=== PATIENT | male | born 1995 | race Two or more races ===

== ENCOUNTER 2023-04-17 14:41 | Observation (INO) | payer MEDICAID, SELFPAY ==
--- NOTE | ~2023-04-17 | CT_ITS ---
EXAMINATION: CT ANGIOGRAM OF THE CHEST WITH AND WITHOUT CONTRAST (CT PULMONARY ANGIOGRAM FOR PE) CLINICAL INFORMATION: Reason for Exam chest pain, SOB COMPARISON: None available. TECHNIQUE: Prior to contrast administration, noncontrast localization images were obtained. Subsequently, multidetector volumetric imaging was performed from the thoracic inlet to below the diaphragms following the administration of 80 mL Omnipaque 350 intravenous contrast. No contrast reaction reported Sagittal, coronal, and MIP oblique sagittal reformatted images were obtained on the CT workstation, uploaded to PACS, and reviewed. This CT examination was performed using dose optimization techniques as appropriate, variously including the following: *Automated exposure control *Adjustment of mA and/or kV according to patient size (this includes techniques or standardized protocols for targeted exams where dose is matched to indication/reason for exam; i.e. extremities or head) *Use of iterative reconstruction technique Total exam dose-length product 328 mGy-cm FINDINGS: QUALITY OF STUDY/CONTRAST BOLUS: Satisfactory. PULMONARY ARTERIES: No pulmonary emboli. THORACIC AORTA: No aneurysm. LUNG: Dense consolidation within left lower lobe with patchy opacities in the left upper lobe suggestive of multifocal,, multilobar bronchopneumonia. PLEURA: No pleural effusion or pneumothorax. MEDIASTINUM: Normal heart size. No pericardial effusion. No hilar or mediastinal lymphadenopathy. No evidence of septal bowing or right heart strain. CORONARY ARTERY CALCIFICATION: None visualized on this study. CHEST WALL/AXILLA: No axillary or internal mammary lymphadenopathy. OSSEOUS STRUCTURES: No acute or suspicious osseous abnormality. UPPER ABDOMEN: Hepatic steatosis. CT/CT angio chest PE protocol IMPRESSION: * No pulmonary embolism. * Multilobar bronchopneumonia. * Hepatic steatosis. VTE: negative.
--- NOTE | ~2023-04-17 | XR_ITS ---
EXAMINATION: XR CHEST CLINICAL INFORMATION: Cough and chest pain COMPARISON: None available. TECHNIQUE: 2 views of the chest were obtained. FINDINGS: The heart and pulmonary vessels appear normal. There is a small area of patchy density seen in the posterior basal segment of the left lower lobe. Findings are concerning for pneumonia. No suspicious lung masses or pleural effusions are seen. XR/XR chest 2V IMPRESSION: Left lower lobe infiltrate.
--- NOTE | 2023-04-17 14:59 | ECG_ITS ---
Test Reason : CP Blood Pressure : / mmHG Vent. Rate : 104 BPM Atrial Rate : 104 BPM P-R Int : 112 ms QRS Dur : 090 ms QT Int : 332 ms P-R-T Axes : 035 064 019 degrees QTc Int : 436 ms Sinus tachycardia Otherwise normal ECG No previous ECGs available Referred By: Jenn Whitman Electronically Signed By:Kyaw Velázquez
[2023-04-17 15:20] VITALS: BP 106/63; PULSE 110; RESP 17; TEMP 37.3; O2SAT 95; BMI 21.5
--- NOTE | 2023-04-17 15:20 | ED.GENADULT ---
HPI - General Adult General Chief complaint: General Medical Stated complaint: chest pains/ spitting blood Time Seen by Provider: 04/17/23 17:34 Related Data Allergies Allergy/AdvReac Type Severity Reaction Status Date / Time No Known Allergies Allergy Verified 04/17/23 15:24 [facility] Social History Social History Alcohol intake: never Smoked in Last 30 Days: Yes Use of substances other than those prescribed or required for medical reasons: No Advance Directives: No Advance Directives Information Provided: No Physical Exam ED Vital Signs: Vital Signs - 24 hr 04/17/23 15:20 04/17/23 17:47 04/17/23 18:15 Temperature 99.2 F 98.9 F 102.6 F H Pulse Rate 110 H 105 H 107 H Respiratory Rate 17 18 20 Blood Pressure 106/63 119/55 L 114/60 Pulse Oximetry 95 94 95 Oxygen Delivery Method Room Air Room Air Room Air BMI result Body Mass Index 21.5 Course Course Course Narrative: RME - 27 yo male with history of asthma presents to the ER for evaluation of central chest pains, coughing up blood and subjective fever/chills that started last night. He states he is coughing up phlegm mixed with blood and also reports difficulty taking a deep breath due to pain. He also reports diffuse abdominal pains, sore throat and headache since last night as well. Low grade fever on exam w/ HR 100's. Plan: CXR, EKG, lab work, covid swab Medications Administered Discontinued Medications Generic Name Dose Route Start Last Admin Trade Name Freq PRN Reason Stop Dose Admin Ibuprofen 600 mg 04/17/23 18:22 04/17/23 18:28 Ibuprofen 600 Mg Tablet PO 04/17/23 18:23 600 mg ONCE ONE Administration Medical Decision Making Medical Decision Making [facility] Narrative: -I discussed x-ray findings with the patient, patient has left lower lobe pneumonia. D-dimer negative. -when patient ambulates, his oxygen dropped to 88-89%, then addressed it comes back to the low 90s. -lactic acid and blood cultures pending. Patient has normal blood pressure, a bit tachycardic. -patient was given 3 L of normal saline, IV levofloxacin. At this time, 18:44 sepsis is not suspect, neck acid pending Differential Diagnosis Differential Diagnoses: The differential diagnosis associated with the presentation includes (Pneumonia, pulmonary embolism, bronchitis) Admission/Observation Consideration of admission/observation: Escalation of care including admission/observation considered Consult Healthcare Provider Management of the patient was discussed with: Hospitalist Lab Data MDM Lab Attestation statement: I reviewed the patient's lab results. 04/17/23 15:34 04/17/23 15:34 Labs: Lab Results 04/17/23 04/17/23 04/17/23 Range/Units 15:34 15:34 15:34 WBC 18.6 H (4.8-10.8) X10*3/uL RBC 5.51 (4.60-5.80) X10*6/uL Hgb 15.3 (14.0-18.0) g/dl Hct 46.0 (42.0-52.0) % MCV 83.5 (80.0-98.0) fL MCH 27.8 (27.0-33.0) pg MCHC 33.3 (31.0-36.0) g/dl RDW 14.0 (11.0-16.0) % Plt Count 279 (160-400) X10*3/uL MPV 8.8 L (9.4-12.4) fL Immature Gran % (Auto) 0.5 H (0.0-0.4) % Neut % (Auto) 87.0 H (45-73) % Lymph % (Auto) 4.7 L (20-40) % [place] % (Auto) 7.3 (2-11) % Eos % (Auto) 0.1 (0-4) % Baso % (Auto) 0.4 (0-2) % Lymph # (Auto) 0.9 L (1.2-4.9) X10*3/uL [place] # (Auto) 1.4 H (0.1-1.2) X10*3/uL Eos # (Auto) 0.0 (0.0-0.4) X10*3/uL Baso # (Auto) 0.1 (0.0-0.2) X10*3/uL Abs Immat Gran (auto) 0.10 H (0.00-0.03) X10*3/uL Absolute Neuts (auto) 16.2 H (2.0-8.3) x10*3/uL Absolute Nucleated RBC 0.000 (0.0-0.012) X10*3/uL Nucleated RBC % (auto) 0.0 (0.0-0.2) /100WBC PT 13.2 H (10.0-13.1) SEC INR 1.1 (0.9-1.1) APTT 28.8 (26.0-36.4) SEC D-Dimer High Sensitivty 202 NG/ML Sodium 134 L (135-145) mmol/L Potassium 4.1 (3.3-5.1) mmol/L Chloride 98 (96-108) mmol/L Carbon Dioxide 26 (22-29) mmol/L Anion Gap 14 (12-20) BUN 13 (9-16) mg/dL Creatinine 0.88 (0.5-1.4) mg/dL Estim Creat Clear Calc 119.1 Estimated GFR > 60 Random Glucose 96 (60-115) mg/dL Calcium 9.8 (8.4-10.2) mg/dL Magnesium 1.8 (1.6-2.6) mg/dL Total Bilirubin 1.5 H (0.0-1.0) mg/dL Direct Bilirubin 0.6 H (0.0-0.5) mg/dL AST 57 H (5-37) U/L ALT 40 (0-40) U/L Alkaline Phosphatase 128 H (39-117) U/L Troponin I High Sens (<3.5-35.0) ng/L Total Protein 7.2 (6.5-8.0) g/dL Albumin 4.4 (3.5-5.0) g/dL Urine Opiates Screen (Not Detect) Urine Fentanyl Screen (Not Detect) Ur Barbiturates Screen (Not Detect) Ur Phencyclidine Scrn (Not Detect) Ur Amphetamines Screen (Not Detect) U Benzodiazepines Scrn (Not Detect) Urine Cocaine Screen (Not Detect) U Marijuana (THC) Screen (Not Detect) Ethyl Alcohol < 10 mg/dL COVID-19 (DENY) (Negative) COVID-19 Clin Com S. pyogenes GrpA JAYASHREE (Negative) 04/17/23 04/17/23 04/17/23 Range/Units 15:34 15:36 15:36 WBC (4.8-10.8) X10*3/uL RBC (4.60-5.80) X10*6/uL Hgb (14.0-18.0) g/dl Hct (42.0-52.0) % MCV (80.0-98.0) fL MCH (27.0-33.0) pg MCHC (31.0-36.0) g/dl RDW (11.0-16.0) % Plt Count (160-400) X10*3/uL MPV (9.4-12.4) fL Immature Gran % (Auto) (0.0-0.4) % Neut % (Auto) (45-73) % Lymph % (Auto) (20-40) % [place] % (Auto) (2-11) % Eos % (Auto) (0-4) % Baso % (Auto) (0-2) % Lymph # (Auto) (1.2-4.9) X10*3/uL [place] # (Auto) (0.1-1.2) X10*3/uL Eos # (Auto) (0.0-0.4) X10*3/uL Baso # (Auto) (0.0-0.2) X10*3/uL Abs Immat Gran (auto) (0.00-0.03) X10*3/uL Absolute Neuts (auto) (2.0-8.3) x10*3/uL Absolute Nucleated RBC (0.0-0.012) X10*3/uL Nucleated RBC % (auto) (0.0-0.2) /100WBC PT (10.0-13.1) SEC INR (0.9-1.1) APTT (26.0-36.4) SEC D-Dimer High Sensitivty NG/ML Sodium (135-145) mmol/L Potassium (3.3-5.1) mmol/L Chloride (96-108) mmol/L Carbon Dioxide (22-29) mmol/L Anion Gap (12-20) BUN (9-16) mg/dL Creatinine (0.5-1.4) mg/dL Estim Creat Clear Calc Estimated GFR Random Glucose (60-115) mg/dL Calcium (8.4-10.2) mg/dL Magnesium (1.6-2.6) mg/dL Total Bilirubin (0.0-1.0) mg/dL Direct Bilirubin (0.0-0.5) mg/dL AST (5-37) U/L ALT (0-40) U/L Alkaline Phosphatase (39-117) U/L Troponin I High Sens < 2.7 (<3.5-35.0) ng/L Total Protein (6.5-8.0) g/dL Albumin (3.5-5.0) g/dL Urine Opiates Screen (Not Detect) Urine Fentanyl Screen (Not Detect) Ur Barbiturates Screen (Not Detect) Ur Phencyclidine Scrn (Not Detect) Ur Amphetamines Screen (Not Detect) U Benzodiazepines Scrn (Not Detect) Urine Cocaine Screen (Not Detect) U Marijuana (THC) Screen (Not Detect) Ethyl Alcohol mg/dL COVID-19 (DENY) Negative (Negative) COVID-19 Clin Com See Note S. pyogenes GrpA JAYASHREE Negative (Negative) 04/17/23 Range/Units 18:01 WBC (4.8-10.8) X10*3/uL RBC (4.60-5.80) X10*6/uL Hgb (14.0-18.0) g/dl Hct (42.0-52.0) % MCV (80.0-98.0) fL MCH (27.0-33.0) pg MCHC (31.0-36.0) g/dl RDW (11.0-16.0) % Plt Count (160-400) X10*3/uL MPV (9.4-12.4) fL Immature Gran % (Auto) (0.0-0.4) % Neut % (Auto) (45-73) % Lymph % (Auto) (20-40) % [place] % (Auto) (2-11) % Eos % (Auto) (0-4) % Baso % (Auto) (0-2) % Lymph # (Auto) (1.2-4.9) X10*3/uL [place] # (Auto) (0.1-1.2) X10*3/uL Eos # (Auto) (0.0-0.4) X10*3/uL Baso # (Auto) (0.0-0.2) X10*3/uL Abs Immat Gran (auto) (0.00-0.03) X10*3/uL Absolute Neuts (auto) (2.0-8.3) x10*3/uL Absolute Nucleated RBC (0.0-0.012) X10*3/uL Nucleated RBC % (auto) (0.0-0.2) /100WBC PT (10.0-13.1) SEC INR (0.9-1.1) APTT (26.0-36.4) SEC D-Dimer High Sensitivty NG/ML Sodium (135-145) mmol/L Potassium (3.3-5.1) mmol/L Chloride (96-108) mmol/L Carbon Dioxide (22-29) mmol/L Anion Gap (12-20) BUN (9-16) mg/dL Creatinine (0.5-1.4) mg/dL Estim Creat Clear Calc Estimated GFR Random Glucose (60-115) mg/dL Calcium (8.4-10.2) mg/dL Magnesium (1.6-2.6) mg/dL Total Bilirubin (0.0-1.0) mg/dL Direct Bilirubin (0.0-0.5) mg/dL AST (5-37) U/L ALT (0-40) U/L Alkaline Phosphatase (39-117) U/L Troponin I High Sens (<3.5-35.0) ng/L Total Protein (6.5-8.0) g/dL Albumin (3.5-5.0) g/dL Urine Opiates Screen Not Detected (Not Detect) Urine Fentanyl Screen POSITIVE H (Not Detect) Ur Barbiturates Screen Not Detected (Not Detect) Ur Phencyclidine Scrn Not Detected (Not Detect) Ur Amphetamines Screen Not Detected (Not Detect) U Benzodiazepines Scrn Not Detected (Not Detect) Urine Cocaine Screen POSITIVE H (Not Detect) U Marijuana (THC) Screen POSITIVE H (Not Detect) Ethyl Alcohol mg/dL COVID-19 (DENY) (Negative) COVID-19 Clin Com S. pyogenes GrpA JAYASHREE (Negative) Radiology Impression Discussion of test interpretation with radiology: I have reviewed the radiologist's reading. Radiologist Impression: The heart and pulmonary vessels appear normal. There is a small area of patchy density seen in the posterior basal segment of the left lower lobe. Findings are concerning for pneumonia. No suspicious lung masses or pleural effusions are seen. XR/XR chest 2V IMPRESSION: Left lower lobe infiltrate. Critical Care Time Critical Care Time Critical Care Time: Yes Total Critical Care Time: 60 Attestation: Please follow-up with your primary care physician tomorrow. If you have any worsening or new symptoms, please return to the emergency room or call 911 Discharge Plan Discharge Clinical Impression: Pneumonia Patient Disposition: Admitted As Inpatient
[2023-04-17 15:42] LABS: MANUAL DIFF FLAG NO
[2023-04-17 15:47] LABS: Basophils Absolute Auto 0.1 X10*3/uL (0.0-0.2); Basophils Percent Auto 0.4 % (0-2); Eosinophils Percent Auto 0.1 % (0-4); Hemoglobin 15.3 g/dl (14.0-18.0); Imm Gran Pct Auto 0.5 % (0.0-0.4); Lymphocytes Absolute Auto 0.9 X10*3/uL (1.2-4.9); Lymphocytes Percent Auto 4.7 % (20-40); Mean Corpuscular HGB Conc 33.3 g/dl (31.0-36.0); Mean Corpuscular Hemoglobin 27.8 pg (27.0-33.0); Mean Corpuscular Volume 83.5 fL (80.0-98.0); Mean Platelet Volume 8.8 fL (9.4-12.4); Monocytes Absolute Auto 1.4 X10*3/uL (0.1-1.2); Monocytes Percent Auto 7.3 % (2-11); Neutrophils Absolute Auto 16.2 x10*3/uL (2.0-8.3); Platelet Count 279 X10*3/uL (160-400); Red Blood Count 5.51 X10*6/uL (4.60-5.80); White Blood Count 18.6 X10*3/uL (4.8-10.8)
[2023-04-17 16:04] LABS: INTERNATIONAL NORM RATIO 1.1 (0.9-1.1); Prothrombin Time 13.2 SEC (10.0-13.1)
[2023-04-17 16:05] LABS: COVID-19 Test Negative (Negative); IDNOW Serial# 08D9AD1C; IDNOW Serial# BCCEAD1C; Strep A Nucleic Acid Negative (Negative)
[2023-04-17 16:07] LABS: Partial Thromboplastin Time 28.8 SEC (26.0-36.4)
[2023-04-17 16:41] LABS: Potassium 4.1 mmol/L (3.3-5.1)
[2023-04-17 16:42] LABS: Alanine Aminotransferase 40 U/L (0-40); Albumin Level 4.4 g/dL (3.5-5.0); Alkaline Phosphatase 128 U/L (39-117); Anion Gap 14 (12-20); Aspartate Amino Transferase 57 U/L (5-37); Bilirubin Direct 0.6 mg/dL (0.0-0.5); Bilirubin Total 1.5 mg/dL (0.0-1.0); Blood Urea Nitrogen 13 mg/dL (9-16); Calcium 9.8 mg/dL (8.4-10.2); Carbon Dioxide 26 mmol/L (22-29); Chloride 98 mmol/L (96-108); Creatinine Clr Calc Pharmacy 119.1; Estimated Glomerular Filt Rate > 60; Ethanol < 10 mg/dL; Glucose Random 96 mg/dL (60-115); Magnesium 1.8 mg/dL (1.6-2.6); Sodium 134 mmol/L (135-145); Total Protein 7.2 g/dL (6.5-8.0)
[2023-04-17 16:43] LABS: Troponin-I High Sensitivity < 2.7 ng/L (<3.5-35.0)
[2023-04-17 17:47] VITALS: BP 119/55; PULSE 105; RESP 18; TEMP 37.2; O2SAT 94
--- NOTE | 2023-04-17 18:02 | PC.NURSE ---
pt AOX3, reporting abdom pain, sob, fevers per pt. Pt is coughing up bloody phlegm walked with pt, pt Sats remained high 92-94 on walk to bathroom, when returning from bathroom, pt dipped to 89 breifly but came back up to 94. urine sample sent to lab
[2023-04-17 18:06] LABS: D Dimer High Sensitivity 202 NG/ML
[2023-04-17 18:15] VITALS: BP 114/60; PULSE 107; RESP 20; TEMP 39.2; O2SAT 95
[2023-04-17 18:17] LABS: Amphetamine Screen Urine Not Detected (Not Detect); Barbiturates, Urine Not Detected (Not Detect); Benzodiazepines Screen Urine Not Detected (Not Detect); Cannabinoid Screen Urine POSITIVE (Not Detect); Cocaine Screen Urine POSITIVE (Not Detect); Fentanyl, urine POSITIVE (Not Detect); Opiate Screen Urine Not Detected (Not Detect); Phencyclidine Screen Urine Not Detected (Not Detect)
[2023-04-17] MEDS: Ibuprofen 600 MG TABLET PO (18:28)
[2023-04-17] MEDS: 0.9 % Sodium Chloride 1,000 ML 999 ML IVCONT (18:35)
--- NOTE | 2023-04-17 18:38 | PC.NURSE ---
awaiting blood cultures before hanging abx. fluids running per mar
--- NOTE | 2023-04-17 18:46 | PM.IMHP ---
History of Present Illness Date of Service: 04/17/23 Chief Complaint: cough, fever A 27 years old male with PMH of substance abuse who presents with 1 day hx of cough, fever and chest pain. He reports that he has been feeling sick for couple of days but was hit by chills and fever last night associated with cough and incident of blood with coughing, dyspnea on exertion and general weakness associated with central chest pain and generalized abdominal pain. denies any headache, double visions, N\V\D or urinary symptoms. In ED found to be febrile with tachycardia and elevated WBCs. CXR showed an evidence of LLL pneumonia. Review of Systems Review of Systems: reporting fever, chills or weakness having chest wall pain, palpitation reporting shortness of breath and coughing abdominal pain, no nausea or vomiting No urinary symptoms No any rash or wounds PMFSH Medical History Substance abuse Social History Alcohol intake: never Patient Tobacco Use Status: Current everyday Tobacco user Smoked in Last 30 Days: Yes Use of substances other than those prescribed or required for medical reasons: No Advance Directives: No Advance Directives Information Provided: No Nutrition Risks: Poor intake 0-25% >4 days Meds Allergies Allergy/AdvReac Type Severity Reaction Status Date / Time No Known Allergies Allergy Verified 04/17/23 15:24 Active Medications: Current Medications Levofloxacin (Levaquin) 500 mg in 100 mls @ 100 mls/hr IV ONCE ONE Stop: 04/17/23 19:28 Sodium Chloride (Ns) 1,000 mls @ 999 mls/hr IVCONT .Q1H1M ONE Stop: 04/17/23 19:29 Last Admin: 04/17/23 18:35 Dose: 999 mls/hr Sodium Chloride (Ns) 2,000 mls @ 999 mls/hr IVCONT .Q2H1M ONE Stop: 04/17/23 20:43 Pharmacy Consult (Consult Rx Perform Med Rec) 1 each MISCELLANE ONCE PRN PRN Reason: Consult order Home Medications Medication Instructions Recorded Confirmed Last Taken Type albuterol sulfate 90 mcg/actuation 2 puff inhalation Q4H PRN 05/17/23 05/17/23 Unknown History aerosol inhaler (Ventolin HFA) Shortness Of Breath Physical Exam Vital Signs and Narrative: Vital Signs: Last Vital Signs Temp 102.6 F H 04/17/23 18:15 Pulse 107 H 04/17/23 18:15 Resp 20 04/17/23 18:15 BP 114/60 04/17/23 18:15 Pulse Ox 95 04/17/23 18:15 O2 Del Method Room Air 04/17/23 18:15 BMI result Body Mass Index 21.5 Const: Other: Constitutional : Awake, interactive, in mild respiratory distress, looks sick Neck : Normal inspection, Supple Cardiovascular : RRR, no JVP, no lower extremity edema Respiratory : fair bilateral air entry, LLL crackles Gastrointestinal: soft, lax, Normal bowel sounds, Non tender Skin : Warm, Dry Neurological : Alert & oriented x3, No focal deficit Results Labs 04/17/23 15:34 04/17/23 15:34 Labs: Laboratory Results - last 24 hr 04/17/23 04/17/23 04/17/23 15:34 15:34 15:34 MCV 83.5 MCH 27.8 MCHC 33.3 RDW 14.0 Plt Count 279 MPV 8.8 L Immature Gran % (Auto) 0.5 H Neut % (Auto) 87.0 H Lymph % (Auto) 4.7 L [place] % (Auto) 7.3 Eos % (Auto) 0.1 Baso % (Auto) 0.4 Lymph # (Auto) 0.9 L [place] # (Auto) 1.4 H Eos # (Auto) 0.0 Baso # (Auto) 0.1 Abs Immat Gran (auto) 0.10 H Absolute Neuts (auto) 16.2 H Absolute Nucleated RBC 0.000 Nucleated RBC % (auto) 0.0 PT 13.2 H INR 1.1 APTT 28.8 D-Dimer High Sensitivty 202 Anion Gap 14 Estim Creat Clear Calc 119.1 Estimated GFR > 60 Random Glucose 96 Calcium 9.8 Magnesium 1.8 Total Bilirubin 1.5 H Direct Bilirubin 0.6 H AST 57 H ALT 40 Alkaline Phosphatase 128 H Troponin I High Sens Total Protein 7.2 Albumin 4.4 Urine Opiates Screen Urine Fentanyl Screen Ur Barbiturates Screen Ur Phencyclidine Scrn Ur Amphetamines Screen U Benzodiazepines Scrn Urine Cocaine Screen U Marijuana (THC) Screen Ethyl Alcohol < 10 COVID-19 (DENY) COVID-19 Clin Com S. pyogenes GrpA JAYASHREE 04/17/23 04/17/23 04/17/23 15:34 15:36 15:36 MCV MCH MCHC RDW Plt Count MPV Immature Gran % (Auto) Neut % (Auto) Lymph % (Auto) [place] % (Auto) Eos % (Auto) Baso % (Auto) Lymph # (Auto) [place] # (Auto) Eos # (Auto) Baso # (Auto) Abs Immat Gran (auto) Absolute Neuts (auto) Absolute Nucleated RBC Nucleated RBC % (auto) PT INR APTT D-Dimer High Sensitivty Anion Gap Estim Creat Clear Calc Estimated GFR Random Glucose Calcium Magnesium Total Bilirubin Direct Bilirubin AST ALT Alkaline Phosphatase Troponin I High Sens < 2.7 Total Protein Albumin Urine Opiates Screen Urine Fentanyl Screen Ur Barbiturates Screen Ur Phencyclidine Scrn Ur Amphetamines Screen U Benzodiazepines Scrn Urine Cocaine Screen U Marijuana (THC) Screen Ethyl Alcohol COVID-19 (DENY) Negative COVID-19 Clin Com See Note S. pyogenes GrpA JAYASHREE Negative 04/17/23 18:01 MCV MCH MCHC RDW Plt Count MPV Immature Gran % (Auto) Neut % (Auto) Lymph % (Auto) [place] % (Auto) Eos % (Auto) Baso % (Auto) Lymph # (Auto) [place] # (Auto) Eos # (Auto) Baso # (Auto) Abs Immat Gran (auto) Absolute Neuts (auto) Absolute Nucleated RBC Nucleated RBC % (auto) PT INR APTT D-Dimer High Sensitivty Anion Gap Estim Creat Clear Calc Estimated GFR Random Glucose Calcium Magnesium Total Bilirubin Direct Bilirubin AST ALT Alkaline Phosphatase Troponin I High Sens Total Protein Albumin Urine Opiates Screen Not Detected Urine Fentanyl Screen POSITIVE H Ur Barbiturates Screen Not Detected Ur Phencyclidine Scrn Not Detected Ur Amphetamines Screen Not Detected U Benzodiazepines Scrn Not Detected Urine Cocaine Screen POSITIVE H U Marijuana (THC) Screen POSITIVE H Ethyl Alcohol COVID-19 (DENY) COVID-19 Clin Com S. pyogenes GrpA JAYASHREE Imaging Radiologist's Impressions: Impressions Chest X-Ray 04/17/23 15:54 IMPRESSION: Left lower lobe infiltrate. Assessment and Plan (1) Pneumonia: Status: Acute (2) Severe sepsis: Status: Acute Plan A 27 years old male with PMH of substance abuse who presents with 1 day hx of cough, fever and chest pain. Hypoxia in severe Sepsis 2/2 CAP Leukocytosis, fever and tachycardia with elevated bilirubin CXR showing LLL infiltrates received 30cc\kg IVF in ED pending cultures Levofloxacin wean O2 down as tolerated Drug abuse cocaine and Fentanyl in urine tox addiction team to follow Elevated Bilirubin 2/2 severe sepsis monitor LFT DVT PPx early ambulation Patient will need 2 night inpatient for treatment of sepsis . Time Spent With Patient Time: Total time managing care of this patient today ____ minutes. Quality Stroke Does the patient have a stroke diagnosis?: No VTE Prior VTE?: No VTE Risk Level:: Medical - moderate - high VTE Device Contraindication: Treatment Not Indicated VTE Drug Contraindication: Treatment Not Indicated
--- NOTE | 2023-04-17 18:50 | MHC.EDTECH ---
blood culture and lactic acid drawn and sent to lab.
[2023-04-17 19:05] VITALS: BP 112/58; PULSE 103; RESP 20; TEMP 38.4; O2SAT 98
[2023-04-17 19:14] LABS: Appearance Urine Clear; Color Urine Dark Yellow; Glucose Urine UA Negative (Negative); PH 6.5 (5.0-9.0); Specific Gravity - Urine >= 1.030 (1.005-1.025); UMIC TRIGGER UACC YES; Urine Blood Negative (Negative); Urine Ketones 15 mg/dL (Negative); Urine Protein 100 (2+) mg/dL (Neg-Trace)
[2023-04-17] MEDS: 0.9 % Sodium Chloride 2,000 ML 999 ML IVCONT (19:22)
--- NOTE | 2023-04-17 19:22 | PC.NURSE ---
2nd and 3rd liters of NS hung per MD confirmation. awaiting 2nd set BCs
[2023-04-17 19:26] LABS: Lactic Acid 0.6 mmol/L (0.5-2.0)
[2023-04-17 19:41] LABS: Nitrite Urine Negative (Negative)
[2023-04-17 19:42] LABS: Bacteria Urine None Seen (None Seen); Hyaline Casts Urine 0-2 /LPF (0-2); Leukocyte Esterase Urine Negative (Negative); RBC Urine 0-2 /HPF (0-2); Squamous Epithelial Cell Urine 0-2 /HPF (0-2); WBC Urine 0-5 /HPF (0-5)
[2023-04-17] MEDS: levoFLOXacin/D5W 500 MG/100 ML PIGGYBACK 100 MG IV (19:42)
[2023-04-17 19:46] VITALS: BP 100/45; PULSE 95; RESP 20; TEMP 37.8; O2SAT 98
[2023-04-17] MEDS: Dextrose 5 % and 0.9 % NaCl 1,000 ML 100 ML IVCONT (19:48)
--- NOTE | 2023-04-17 20:59 | PHA.MEDREC ---
Pharmacy Consult ? Medication Reconciliation Pharmacy has completed the medication reconciliation. sPOKE WITH PATIENT IN THE ED. PATIENT IS ONLY ON ALBUERTOL INHALER, HE IS NO LONGER TAKING SUBOXONE
[2023-04-17] MEDS: oxyCODONE HCl Immed Release 5 MG TABLET PO (22:33)
[2023-04-17 23:25] VITALS: BP 128/68; PULSE 115; RESP 22; TEMP 36.9; O2SAT 93
[2023-04-17] MEDS: Morphine Sulfate 4 MG/ML CARTRIDGE IM (23:49)
[2023-04-17] MEDS: guaiFENesin DM 100/10/5 ML 5 ML SYRUP PO (23:50)
--- NOTE | 2023-04-17 23:53 | PC.NURSE ---
Pt medicated per Jan, Dr Hilton into assess pt. Will continue to monitor.
--- NOTE | 2023-04-18 00:14 | PC.NURSE ---
pt medicated for pain management, pt taken to Ct/Scan
[2023-04-18] MEDS: iohexoL 350 MG/ML 100 ML INFUS..BTL 65 ML IV (00:28)
--- NOTE | 2023-04-18 02:05 | PC.NURSE ---
pt out of bed ambulating to rest room with a steady gait.
[2023-04-18] MEDS: Dextrose 5 % and 0.9 % NaCl 1,000 ML 100 ML IVCONT ×3 (04:49→23:13)
[2023-04-18 05:58] LABS: Hemoglobin 13.4 g/dl (14.0-18.0); Mean Corpuscular HGB Conc 34.4 g/dl (31.0-36.0); Mean Corpuscular Volume 81.4 fL (80.0-98.0); Platelet Count 226 X10*3/uL (160-400); Red Blood Count 4.79 X10*6/uL (4.60-5.80); Red Cell Distribution Width 13.7 % (11.0-16.0)
[2023-04-18 06:12] VITALS: BP 108/61; PULSE 110; RESP 28; TEMP 37.7; O2SAT 92
[2023-04-18 06:20] LABS: Anion Gap 10 (12-20); Blood Urea Nitrogen 11 mg/dL (9-16); Calcium 8.1 mg/dL (8.4-10.2); Carbon Dioxide 22 mmol/L (22-29); Chloride 106 mmol/L (96-108); Creatinine Clr Calc Pharmacy 136.2; Estimated Glomerular Filt Rate > 60; Glucose Random 124 mg/dL (60-115); Potassium 3.3 mmol/L (3.3-5.1); Sodium 135 mmol/L (135-145)
[2023-04-18] MEDS: Morphine Sulfate 4 MG/ML CARTRIDGE IM (06:36)
--- NOTE | 2023-04-18 06:39 | PC.NURSE ---
Medicated with pain medication, Will continue to monitor.
--- NOTE | 2023-04-18 06:50 | PC.NURSE ---
Delivered breakfast tray,
[2023-04-18] MEDS: ondansetron HCL 4 MG/2 ML VIAL IVPUSH (09:02)
[2023-04-18 09:12] VITALS: BP 137/76; PULSE 113; RESP 22; TEMP 37.7; O2SAT 97
--- NOTE | 2023-04-18 09:24 | MHC.RECOVRN ---
This sheet writer attempted to meet with patient, patient awake, alert, sitting up in bed, with emesis bag, c/o nausea prior to t/w entering room. Spouse at bedside. T/W reviewed that if patient is not feeling well, please let RN know as their are medications available to help. T/W refrained from discussing positive UDS and explicit CECELIA discussion, as spouse was at bedside. Pt states no i'm good, i feel fine . T/W observed patient had emesis bag, sweaty. Discussed with PADMINI Garner and Keren Carrasco NP. Provider Keren Carrasco NP ordered one time dose of MTD if patient does request. Addiction/Recovery team to return to discuss harm reduction/recovery supports/CECELIA hx when spouse is not at bedside.
--- NOTE | 2023-04-18 10:25 | PC.NURSE ---
recovery team at the bedside, patient states he uses a bundle of heroin a day. offered methadone and refused. will monitor for signs of withdrawal
[2023-04-18] MEDS: Piperacillin Sodium/Tazobactam 4.5 GM in 0.9 % Sodium Chloride 100 ML IV ×3 (11:04→22:37)
[2023-04-18] MEDS: Cyclobenzaprine HCl 5 MG TABLET PO ×3 (11:04→19:58)
[2023-04-18] MEDS: vancomycin HCL 1,000 MG, vancomycin HCL 750 MG in 0.9 % Sodium Chloride 500 ML 267.5 MG IV (11:46)
--- NOTE | 2023-04-18 12:06 | P.PNIM_ITS ---
Subjective Subjective Date of Service: 04/18/23 Interval History: Looks sick and tired On RA, mild resp distress coughing bloody tinged sputum Had CTA overnight no other overnight events Review of Systems reporting fever, chills or weakness having chest wall pain, palpitation reporting shortness of breath and coughing abdominal pain, no nausea or vomiting No urinary symptoms No any rash or wounds Physical Exam Vital Signs: Vital Signs: Last Vital Signs Temp 99.9 F 04/18/23 09:12 Pulse 113 H 04/18/23 09:12 Resp 22 H 04/18/23 09:12 BP 137/76 04/18/23 09:12 Pulse Ox 97 04/18/23 09:12 O2 Del Method Room Air 04/18/23 09:12 BMI result Body Mass Index 21.5 Const: Other: Constitutional : Awake, interactive, in mild respiratory distress, looks sick Neck : Normal inspection, Supple Cardiovascular : RRR, no JVP, no lower extremity edema Respiratory : fair bilateral air entry, LLL crackles Gastrointestinal: soft, lax, Normal bowel sounds, Non tender Skin : Warm, Dry Neurological : Alert & oriented x3, No focal deficit Objective Data Active Medications Acetaminophen (Acetaminophen 325 Mg Tablet) 650 mg PO Q6H PRN PRN Reason: Pain, Mild (Pain Scale 1-3) Albuterol Sulfate (Albuterol Sulfate (0.083%) 2.5 Mg/3 Ml Vial.Neb) 2.5 mg INHALE Q4H PRN PRN Reason: Shortness of Breath/Wheezing Benzonatate (Benzonatate 100 Mg Capsule) 200 mg PO TID [facility] Cyclobenzaprine HCl (Cyclobenzaprine Hcl 5 Mg Tablet) 5 mg PO TID [facility] Last Admin: 04/18/23 11:04 Dose: 5 mg Documented By: PHILLIP Guaifenesin (Guaifenesin La 600 Mg Tab.Er.12h) 600 mg PO BID [facility] Hydroxyzine HCl (Hydroxyzine Hcl 25 Mg Tablet) 25 mg PO Q6H PRN PRN Reason: anxiety/restlessness Dextrose/Sodium Chloride (D5ns) 1,000 mls @ 100 mls/hr IVCONT .Q10H [facility] Last Admin: 04/18/23 04:49 Dose: 100 mls/hr Documented By: TIFFANIE Piperacillin Sod/Tazobactam (Sod 4.5 gm/ Sodium Chloride) 100 mls @ 200 mls/hr IV Q6H [facility] Last Infusion: 04/18/23 11:36 Dose: 0 mls/hr Documented By: PHILLIP Vancomycin HCl 1,000 mg/Vancomycin HCl 750 mg/ Sodium Chloride 535 mls @ 267.5 mls/hr IV ONCE ONE Stop: 04/18/23 12:59 Last Admin: 04/18/23 11:46 Dose: 267.5 mls/hr Documented By: PHILLIP Vancomycin HCl 1,250 mg/ (Sodium Chloride) 250 mls @ 166.667 mls/hr IV Q12H [facility]EL[facility] Morphine Sulfate (Morphine Sulfate 4 Mg/Ml Cartridge) 4 mg IM Q4H PRN; Protocol PRN Reason: Pain, Severe (Pain Scale 7-10) Last Admin: 04/18/23 06:36 Dose: 4 mg Documented By: TIFFANIE Ondansetron HCl (Ondansetron Hcl 4 Mg/2 Ml Vial) 4 mg IVPUSH Q8H PRN PRN Reason: Nausea and Vomiting Last Admin: 04/18/23 09:02 Dose: 4 mg Documented By: PHILLIP Pharmacy Consult (Consult Rx Perform Med Rec) 1 each MISCELLANE ONCE PRN PRN Reason: Consult order Pharmacy Consult (Consult Rx Vancomycin Dosing) 1 each MISCELLANE DAILY PRN PRN Reason: Consult order Sodium Chloride (0.9 % Sodium Chloride Flush 3 Ml Syringe) [address] [facility] Last Admin: 04/18/23 07:11 Dose: Not Given Documented By: MEAGHAN Non-Admin Reason: IV Running Labs 04/18/23 05:47 04/18/23 05:47 Labs: Laboratory Results - last 24 hr 04/17/23 04/17/23 04/17/23 15:34 15:34 15:34 MCV 83.5 MCH 27.8 MCHC 33.3 RDW 14.0 Plt Count 279 MPV 8.8 L Immature Gran % (Auto) 0.5 H Neut % (Auto) 87.0 H Lymph % (Auto) 4.7 L [place] % (Auto) 7.3 Eos % (Auto) 0.1 Baso % (Auto) 0.4 Lymph # (Auto) 0.9 L [place] # (Auto) 1.4 H Eos # (Auto) 0.0 Baso # (Auto) 0.1 Abs Immat Gran (auto) 0.10 H Absolute Neuts (auto) 16.2 H Absolute Nucleated RBC 0.000 Nucleated RBC % (auto) 0.0 PT 13.2 H INR 1.1 APTT 28.8 D-Dimer High Sensitivty 202 Anion Gap 14 Estim Creat Clear Calc 119.1 Estimated GFR > 60 Random Glucose 96 Lactic Acid Calcium 9.8 Magnesium 1.8 Total Bilirubin 1.5 H Direct Bilirubin 0.6 H AST 57 H ALT 40 Alkaline Phosphatase 128 H Troponin I High Sens Total Protein 7.2 Albumin 4.4 Urine Color Urine Appearance Urine pH Ur Specific [place] Urine Protein Urine Glucose (UA) Urine Ketones Urine Blood Urine Nitrite Ur Leukocyte Esterase Urine RBC Urine WBC Ur Squamous Epith Cells Urine Bacteria Hyaline Casts Urine Opiates Screen Urine Fentanyl Screen Ur Barbiturates Screen Ur Phencyclidine Scrn Ur Amphetamines Screen U Benzodiazepines Scrn Urine Cocaine Screen U Marijuana (THC) Screen Ethyl Alcohol < 10 COVID-19 (DENY) COVID-19 Clin Com S. pyogenes GrpA JAYASHREE 04/17/23 04/17/23 04/17/23 15:34 15:36 15:36 MCV MCH MCHC RDW Plt Count MPV Immature Gran % (Auto) Neut % (Auto) Lymph % (Auto) [place] % (Auto) Eos % (Auto) Baso % (Auto) Lymph # (Auto) [place] # (Auto) Eos # (Auto) Baso # (Auto) Abs Immat Gran (auto) Absolute Neuts (auto) Absolute Nucleated RBC Nucleated RBC % (auto) PT INR APTT D-Dimer High Sensitivty Anion Gap Estim Creat Clear Calc Estimated GFR Random Glucose Lactic Acid Calcium Magnesium Total Bilirubin Direct Bilirubin AST ALT Alkaline Phosphatase Troponin I High Sens < 2.7 Total Protein Albumin Urine Color Urine Appearance Urine pH Ur Specific [place] Urine Protein Urine Glucose (UA) Urine Ketones Urine Blood Urine Nitrite Ur Leukocyte Esterase Urine RBC Urine WBC Ur Squamous Epith Cells Urine Bacteria Hyaline Casts Urine Opiates Screen Urine Fentanyl Screen Ur Barbiturates Screen Ur Phencyclidine Scrn Ur Amphetamines Screen U Benzodiazepines Scrn Urine Cocaine Screen U Marijuana (THC) Screen Ethyl Alcohol COVID-19 (DENY) Negative COVID-19 Clin Com See Note S. pyogenes GrpA JAYASHREE Negative 04/17/23 04/17/23 04/17/23 18:01 18:59 18:59 MCV MCH MCHC RDW Plt Count MPV Immature Gran % (Auto) Neut % (Auto) Lymph % (Auto) [place] % (Auto) Eos % (Auto) Baso % (Auto) Lymph # (Auto) [place] # (Auto) Eos # (Auto) Baso # (Auto) Abs Immat Gran (auto) Absolute Neuts (auto) Absolute Nucleated RBC Nucleated RBC % (auto) PT INR APTT D-Dimer High Sensitivty Anion Gap Estim Creat Clear Calc Estimated GFR Random Glucose Lactic Acid 0.6 Calcium Magnesium Total Bilirubin Direct Bilirubin AST ALT Alkaline Phosphatase Troponin I High Sens Total Protein Albumin Urine Color Dark Yellow Urine Appearance Clear Urine pH 6.5 Ur Specific [place] >= 1.030 H Urine Protein 100 (2+) H Urine Glucose (UA) Negative Urine Ketones 15 Urine Blood Negative Urine Nitrite Negative Ur Leukocyte Esterase Negative Urine RBC 0-2 Urine WBC 0-5 Ur Squamous Epith Cells 0-2 Urine Bacteria None Seen Hyaline Casts 0-2 Urine Opiates Screen Not Detected Urine Fentanyl Screen POSITIVE H Ur Barbiturates Screen Not Detected Ur Phencyclidine Scrn Not Detected Ur Amphetamines Screen Not Detected U Benzodiazepines Scrn Not Detected Urine Cocaine Screen POSITIVE H U Marijuana (THC) Screen POSITIVE H Ethyl Alcohol COVID-19 (DENY) COVID-19 Clin Com S. pyogenes GrpA JAYASHREE 04/18/23 04/18/23 05:47 05:47 MCV 81.4 MCH 28.0 MCHC 34.4 RDW 13.7 Plt Count 226 MPV 9.0 L Immature Gran % (Auto) Neut % (Auto) Lymph % (Auto) [place] % (Auto) Eos % (Auto) Baso % (Auto) Lymph # (Auto) [place] # (Auto) Eos # (Auto) Baso # (Auto) Abs Immat Gran (auto) Absolute Neuts (auto) Absolute Nucleated RBC 0.000 Nucleated RBC % (auto) 0.0 PT INR APTT D-Dimer High Sensitivty Anion Gap 10 L Estim Creat Clear Calc 136.2 Estimated GFR > 60 Random Glucose 124 H Lactic Acid Calcium 8.1 L D Magnesium Total Bilirubin Direct Bilirubin AST ALT Alkaline Phosphatase Troponin I High Sens Total Protein Albumin Urine Color Urine Appearance Urine pH Ur Specific [place] Urine Protein Urine Glucose (UA) Urine Ketones Urine Blood Urine Nitrite Ur Leukocyte Esterase Urine RBC Urine WBC Ur Squamous Epith Cells Urine Bacteria Hyaline Casts Urine Opiates Screen Urine Fentanyl Screen Ur Barbiturates Screen Ur Phencyclidine Scrn Ur Amphetamines Screen U Benzodiazepines Scrn Urine Cocaine Screen U Marijuana (THC) Screen Ethyl Alcohol COVID-19 (DENY) COVID-19 Clin Com S. pyogenes GrpA JAYASHREE Assessment and Plan (1) Severe sepsis: Status: Acute (2) Pneumonia: Status: Acute (3) Hemoptysis: Status: Acute (4) Hyperbilirubinemia: Status: Acute Plan A 27 years old male with PMH of substance abuse who presents with 1 day hx of cough, fever and chest pain. Hypoxia in severe Sepsis 2/2 CAP with associated hemoptysis CXR showing LLL infiltrates CTA showed multilobar infiltrates pending cultures change Abx to Vancomycin and Zosyn get Pulm eval for hemoptysis wean O2 down as tolerated Drug abuse cocaine and Fentanyl in urine tox addiction team to follow Elevated Bilirubin 2/2 severe sepsis monitor LFT DVT PPx early ambulation given hemoptysis Patient will need overnight inpatient for treatment of sepsis . Time Spent With Patient Time: Total time managing care of this patient today ____ minutes. Quality Stroke Does the patient have a stroke diagnosis?: No VTE Prior VTE?: No VTE Risk Level:: Medical - moderate - high VTE Device Contraindication: Treatment Not Indicated VTE Drug Contraindication: Treatment Not Indicated
--- NOTE | 2023-04-18 12:12 | PC.NURSE ---
nurse to nurse report called to S3 Valeria [place]
[2023-04-18 12:58] VITALS: BP 116/59; PULSE 111; RESP 18; TEMP 38.2; O2SAT 92
--- NOTE | 2023-04-18 13:05 | PHA.PROG ---
Admission Date/Time: April 17, 2023 18:42 Indication: Sepsis, pneumonia Weight in k.039 kg Adjusted body weight in K kg [place] body weight in K kg Obesity Dosing Indication % IBW: N/A Serum Creatinine - Last 168 Hours 04/17/23 04/18/23 15:34 05:47 Creatinine 0.88 0.77 Estimated CrCl and GFR - Last 168 Hours 04/17/23 04/18/23 15:34 05:47 Estim Creat Clear Calc 119.1 136.2 Estimated GFR > 60 > 60 Vancomycin Loading Dose: 1750 mg Current Vancomycin Dosing Regimen: 1250 mg Q12H Date and Time for next Vancomycin Level to be drawn: 04/19 @2100 Pharmacist Comments on Vancomycin Plan: Patient receiving loading dose on 04/18 @ 1146. Maintenance dose vancomycin 1250 mg Q12H is scheduled to start 04/18 @ 2300. Expected AUC 503 with a trough of 14.2. Level is schedule for prior 4th dose Pharmacy to monitor renal function daily. Dena Hicks, Erci Vancomycin dosing will take advantage of [employer] as a clinical decision support tool that uses Bayesian modeling to calculate individual patient's pharmacokinetic parameters and forecast the patient's drug concentration time course with the target goal AUC 24 range of 400 - 600 mg/L/hr.
[2023-04-18 13:08] VITALS: BMI 21.6
[2023-04-18] MEDS: Acetaminophen 325 MG TABLET 650 MG PO (13:53)
[2023-04-18] MEDS: Benzonatate 100 MG CAPSULE 200 MG PO ×2 (13:53→19:58)
--- NOTE | 2023-04-18 14:09 | PM.CNPUL ---
History of Present Illness History of Present Illness Consult date: 04/18/23 Requesting physician: Peace Hernandez Chief complaint: cough, weakness Narrative: 27-year-old gentleman current 10 pack-year smoker with underlying polysubstance abuse admitted on 04/17/2023 with cough, fevers, small volume hemoptysis, and chest pain. On ER evaluation patient with symptoms of pneumonia, CT chest demonstrating dense left lower lobe consolidation. Patient was started on Levaquin and admitted to [facility]. Review of Systems Constitutional: Constitutional: Denies daytime sleepiness, Denies excessive sweating, Reports fatigue, Reports fever(s), Denies lethargy, Denies malaise, Denies night sweats, Denies snoring and Denies weight loss Eyes: Eyes: Denies blurry vision and Denies itchy eyes ENT: Denies nasal congestion, Denies post nasal drip, Denies sinus pain, Denies sinus pressure and Denies other ( Thrush) Cardiovascular: Cardiovascular: Denies chest pain, Denies pedal edema, Denies dyspnea, Reports dyspnea on exertion, Denies orthopnea and Denies paroxysmal nocturnal dyspnea Respiratory: Respiratory: Reports cough, Reports hemoptysis, Reports excessive phlegm production, Denies dyspnea, Reports dyspnea on exertion, Denies snoring and Denies wheezing Gastrointestinal: Gastrointestinal: Denies abdominal pain and Denies heartburn Musculoskeletal: Musculoskeletal: Denies myalgias, Denies arthralgias and Denies joint swelling Integumentary/Breasts: Skin/Breast: Denies rash Neurologic: Denies memory loss and Denies seizure-like activity Psychiatric: Psychiatric: Denies abnormal sleep pattern, Denies anxiety and Denies memory loss Endocrine: Endocrine: Denies excessive sweating, Reports fatigue and Denies heat intolerance Hematologic/Lymphatic: Hematologic/Lymphatic: Denies easy bruising Allergic/Immunologic: Allergic/Immunologic: Denies itchy eyes, Denies seasonal rhinorrhea and Denies wheezing PMFSH Past Medical History Medical History Substance abuse Social History Social History Household Members: None Housing: Apartment Do you presently have visiting nurse or other home services: No Alcohol intake: never Patient Tobacco Use Status: Current everyday Tobacco user Tobacco use type: Cigarette e-Cigarette/Vaping Use: Never Used Substance Use Type: Crack/Cocaine and Marijuana Meds Allergies Allergy/AdvReac Type Severity Reaction Status Date / Time No Known Allergies Allergy Verified 04/17/23 15:24 Active Medications: Current Medications Acetaminophen (Acetaminophen 325 Mg Tablet) 650 mg PO Q6H PRN PRN Reason: Pain, Mild (Pain Scale 1-3) Last Admin: 04/18/23 13:53 Dose: 650 mg Albuterol Sulfate (Albuterol Sulfate (0.083%) 2.5 Mg/3 Ml Vial.Neb) 2.5 mg INHALE Q4H PRN PRN Reason: Shortness of Breath/Wheezing Benzonatate (Benzonatate 100 Mg Capsule) 200 mg PO TID [facility] Last Admin: 04/18/23 13:53 Dose: 200 mg Cyclobenzaprine HCl (Cyclobenzaprine Hcl 5 Mg Tablet) 5 mg PO TID [facility] Last Admin: 04/18/23 13:52 Dose: 5 mg Guaifenesin (Guaifenesin La 600 Mg Tab.Er.12h) 600 mg PO BID [facility] Hydroxyzine HCl (Hydroxyzine Hcl 25 Mg Tablet) 25 mg PO Q6H PRN PRN Reason: anxiety/restlessness Dextrose/Sodium Chloride (D5ns) 1,000 mls @ 100 mls/hr IVCONT .Q10H [facility] Last Admin: 04/18/23 13:53 Dose: 100 mls/hr Piperacillin Sod/Tazobactam (Sod 4.5 gm/ Sodium Chloride) 100 mls @ 200 mls/hr IV Q6H [facility] Last Infusion: 04/18/23 11:36 Dose: Infused Vancomycin HCl 1,250 mg/ (Sodium Chloride) 250 mls @ 166.667 mls/hr IV Q12H [facility] Morphine Sulfate (Morphine Sulfate 4 Mg/Ml Cartridge) 4 mg IM Q4H PRN; Protocol PRN Reason: Pain, Severe (Pain Scale 7-10) Last Admin: 04/18/23 06:36 Dose: 4 mg Ondansetron HCl (Ondansetron Hcl 4 Mg/2 Ml Vial) 4 mg IVPUSH Q8H PRN PRN Reason: Nausea and Vomiting Last Admin: 04/18/23 09:02 Dose: 4 mg Pharmacy Consult (Consult Rx Perform Med Rec) 1 each MISCELLANE ONCE PRN PRN Reason: Consult order Pharmacy Consult (Consult Rx Vancomycin Dosing) 1 each MISCELLANE DAILY PRN PRN Reason: Consult order Sodium Chloride (0.9 % Sodium Chloride Flush 3 Ml Syringe) 3 ml IVFLUSH QSHIFT [facility] Last Admin: 04/18/23 07:11 Dose: Not Given Home Medications Medication Instructions Recorded Confirmed Last Taken Type albuterol sulfate 90 mcg/actuation 2 puff inhalation Q4H PRN 04/17/23 04/17/23 Unknown History aerosol inhaler (Ventolin HFA) Shortness Of Breath Physical Exam Vital Signs: Vital Signs: Last Vital Signs Temp 100.8 F H 04/18/23 12:58 Pulse 111 H 04/18/23 12:58 Resp 18 04/18/23 12:58 BP 116/59 L 04/18/23 12:58 Pulse Ox 92 04/18/23 12:58 O2 Del Method Room Air 04/18/23 12:58 BMI result Body Mass Index 21.6 Const: General: no acute distress and alert Nutritional Appearance: not obese Orientation/consciousness: Other orientation findings ( oriented) HEENT: Head: Yes atraumatic Mouth: no other ( thrush) Throat: No postnasal drainage Eyes: General: appearance normal, both eyes and all related structures Sclerae: sclerae normal EOM: EOMs intact bilaterally Neck: Neck: Yes supple Lymphatic: no lymphadenopathy noted Resp: Effort & Inspection: normal respiratory effort and no use of accessory muscles Auscultation: other ( left base with poor air movement) Cardio: Rate: tachycardic Rhythm: regular rhythm Heart sounds: no gallops, no murmurs and no rubs GI: Palpation (GI): Soft to palpation and Other GI palpation findings present ( nontender) Skin: General skin exam: other ( warm) Rashes: no rashes Extrem: General: No clubbing, No cyanosis and No edema Results Laboratory Findings 04/18/23 05:47 04/18/23 05:47 ABG, PT/INR, D-dimer: PT/INR, D-dimer PT 13.2 SEC (10.0-13.1) H 04/17/23 15:34 INR 1.1 (0.9-1.1) 04/17/23 15:34 Abnormal lab findings: Abnormal Labs 04/17/23 04/17/23 04/17/23 15:34 15:34 15:34 WBC 18.6 H Hgb Hct MPV 8.8 L Immature Gran % (Auto) 0.5 H Neut % (Auto) 87.0 H Lymph % (Auto) 4.7 L Lymph # (Auto) 0.9 L [place] # (Auto) 1.4 H Abs Immat Gran (auto) 0.10 H Absolute Neuts (auto) 16.2 H PT 13.2 H Sodium 134 L Anion Gap Random Glucose Calcium Total Bilirubin 1.5 H Direct Bilirubin 0.6 H AST 57 H Alkaline Phosphatase 128 H Ur Specific [place] Urine Protein Urine Fentanyl Screen Urine Cocaine Screen U Marijuana (THC) Screen 04/17/23 04/17/23 04/18/23 18:01 18:59 05:47 WBC 20.0 H Hgb 13.4 L Hct 39.0 L MPV 9.0 L Immature Gran % (Auto) Neut % (Auto) Lymph % (Auto) Lymph # (Auto) [place] # (Auto) Abs Immat Gran (auto) Absolute Neuts (auto) PT Sodium Anion Gap Random Glucose Calcium Total Bilirubin Direct Bilirubin AST Alkaline Phosphatase Ur Specific [place] >= 1.030 H Urine Protein 100 (2+) H Urine Fentanyl Screen POSITIVE H Urine Cocaine Screen POSITIVE H U Marijuana (THC) Screen POSITIVE H 04/18/23 05:47 WBC Hgb Hct MPV Immature Gran % (Auto) Neut % (Auto) Lymph % (Auto) Lymph # (Auto) [place] # (Auto) Abs Immat Gran (auto) Absolute Neuts (auto) PT Sodium Anion Gap 10 L Random Glucose 124 H Calcium 8.1 L D Total Bilirubin Direct Bilirubin AST Alkaline Phosphatase Ur Specific [place] Urine Protein Urine Fentanyl Screen Urine Cocaine Screen U Marijuana (THC) Screen Assessment and Plan (1) Polysubstance abuse: Status: Acute (2) Aspiration pneumonia: Status: Acute Plan Impression: 27-year-old gentleman admitted with pneumonia on the background of polysubstance abuse with CT chest demonstrating dense left lower lobe infiltrate, with suspicion of an aspiration component secondary to his substance abuse history. Recommendations: Consider broadening antibiotic coverage to vancomycin and Zosyn. Monitor clinically, if fails to improve, consider repeating CT chest to assess for development of empyema. Time Spent With Patient Time: Total time managing care of this patient today ____ minutes. Procedures Date of Service Date of Service: 04/18/23
--- NOTE | 2023-04-18 14:35 | MHC.RECOVRN ---
Met with pt x2 today to assess for opioid withdrawal. Pt admitted to [facility] for pneumonia. Pt reports using heroin, 1 bundle daily, IN, as well as cocaine, INH, last use yesterday. Per RN, pt was vomiting and diaphoretic this morning. When t/w met with pt at 1030, pt was drowsy and not vomiting, reporting he was okay. Met with pt again at 1400, pt laying in bed, eyes closed but responds when spoken to. Pt continues to deny withdrawal symptoms. Pt declines methadone at this time. Pt educated regarding withdrawal signs/symptoms and availability of medications to address those symptoms. Pt verbalizes agreement to notify RN if withdrawal occurs. Denies questions or concerns for t/w.
[2023-04-18 14:53] VITALS: TEMP 37.4
[2023-04-18 15:28] VITALS: BP 118/56; PULSE 103; RESP 18; TEMP 37.4; O2SAT 92
--- NOTE | 2023-04-18 16:52 | P.EN_ITS ---
Event Note Date of Service: 04/18/23 Event Note: Addiction consult placed for patient with +fentatnyl and cocaine UDS Seen by catalyst recovery operator's several times today to assess for withdrawal and discuss medications for withdrawal patient declined medications and denied any withdrawal sx each time please seen hand lens polisher note dated 04/18/23. Will continue to check in during admission Time Spent With Patient Time: Total time managing care of this patient today ____ minutes.
[2023-04-18 19:12] VITALS: BP 116/61; PULSE 89; RESP 18; TEMP 36.7; O2SAT 95
[2023-04-18] MEDS: guaiFENesin LA 600 MG TAB.ER.12H PO (19:58)
[2023-04-18] MEDS: 0.9 % Sodium Chloride Flush 3 ML SYRINGE IVFLUSH (19:59)
[2023-04-18] MEDS: vancomycin HCL 1,250 MG in 0.9 % Sodium Chloride 250 ML 166.67 MG IV (23:12)
[2023-04-19 03:29] VITALS: BP 115/54; PULSE 95; RESP 18; TEMP 37.1; O2SAT 92
[2023-04-19] MEDS: Piperacillin Sodium/Tazobactam 4.5 GM in 0.9 % Sodium Chloride 100 ML IV (05:29)
[2023-04-19 06:58] LABS: Anion Gap 10 (12-20); Blood Urea Nitrogen 5 mg/dL (9-16); Carbon Dioxide 23 mmol/L (22-29); Chloride 105 mmol/L (96-108); Creatinine Clr Calc Pharmacy 146.4; Estimated Glomerular Filt Rate > 60; Glucose Random 95 mg/dL (60-115); Hematocrit 37.8 % (42.0-52.0); Hemoglobin 12.8 g/dl (14.0-18.0); Mean Corpuscular HGB Conc 33.9 g/dl (31.0-36.0); Mean Corpuscular Hemoglobin 27.8 pg (27.0-33.0); Mean Platelet Volume 9.5 fL (9.4-12.4); NRBC Pct Auto 0.1 /100WBC (0.0-0.2); Platelet Count 246 X10*3/uL (160-400); Potassium 3.3 mmol/L (3.3-5.1); Red Blood Count 4.61 X10*6/uL (4.60-5.80); Red Cell Distribution Width 14.1 % (11.0-16.0); Sodium 135 mmol/L (135-145); White Blood Count 18.4 X10*3/uL (4.8-10.8)
[2023-04-19 06:59] LABS: Alanine Aminotransferase 16 U/L (0-40); Albumin Level 2.8 g/dL (3.5-5.0); Alkaline Phosphatase 83 U/L (39-117); Aspartate Amino Transferase 12 U/L (5-37); Bilirubin Direct 0.2 mg/dL (0.0-0.5); Bilirubin Total 0.5 mg/dL (0.0-1.0); Creatinine Clr Calc Pharmacy 148.5; Estimated Glomerular Filt Rate > 60; Total Protein 4.9 g/dL (6.5-8.0)
[2023-04-19 07:54] VITALS: BP 116/64; PULSE 88; RESP 18; TEMP 36.8; O2SAT 97
[2023-04-19] MEDS: Benzonatate 100 MG CAPSULE 200 MG PO (08:14)
[2023-04-19] MEDS: guaiFENesin LA 600 MG TAB.ER.12H PO (08:14)
[2023-04-19] MEDS: Cyclobenzaprine HCl 5 MG TABLET PO (08:14)
[2023-04-19] MEDS: hydrOXYzine HCL 25 MG TABLET PO (08:20)
--- NOTE | 2023-04-19 10:03 | MHC.RECOVRN ---
Went to meet with pt to assess for withdrawal and further discuss substance use, however, pt had left AMA.
--- NOTE | 2023-04-19 10:22 | P.DS_ITS ---
DS: Providers Provider Date of Service: 04/19/23 Date of admission: 04/17/23 18:42 Primary care physician: Unknown Physician Consults: 04/17/23 18:52 Addiction Medicine Routine Consulting Provider: Addiction Covering Reason for consultation: cocaine abuse, for eval and rec. 04/18/23 09:44 Consult to Pulmonology Routine Consulting Provider: [facility] Reason for consultation: Hemoptysis DS: Diagnosis Discharge Diagnosis (1) Polysubstance abuse: Status: Acute (2) Aspiration pneumonia: Status: Acute (3) Severe sepsis: Status: Acute (4) Hyperbilirubinemia: Status: Acute (5) Hemoptysis: Status: Acute DS: Summary Hospital Course Hospital Course: Admission note HPI A 27 years old male with PMH of substance abuse who presents with 1 day hx of cough, fever and chest pain. He reports that he has been feeling sick for couple of days but was hit by chills and fever last night associated with cough and incident of blood with coughing, dyspnea on exertion and general weakness associated with central chest pain and generalized abdominal pain. denies any headache, double visions, N\V\D or urinary symptoms. In ED found to be febrile with tachycardia and elevated WBCs. CXR showed an evidence of LLL pneumonia. Hospital course Admitted for severe sepsis and treated with IV antibiotics of LEvofloxacin which was broaden to Vancomycin and Zosyn with resolution of fever and improvement in respiratory status with less reported hemoptysis that was evaluated by rail car welder. as the patient felt better and decided to leave AMA without waiting for an outpatient plan or to discuss with MD. I will send him oral antibiotics to finish 10 days of antibiotics , blood cultures still pending at this point. Time Spent with Patient Time attestation: Total time managing care of this patient today ____ minutes. Discharge coordination time: Greater than 30 minutes Quality: Safe Use of Opioids Does Pt have an Active Cancer Diagnosis on the Problem List?: No Quality: Stroke Does the patient have a stroke diagnosis?: No Physical Exam Vital Signs: Vital Signs: Last Vital Signs Temp 98.2 F 04/19/23 07:54 Pulse 88 04/19/23 07:54 Resp 18 04/19/23 07:54 BP 116/64 04/19/23 07:54 Pulse Ox 97 04/19/23 07:54 O2 Del Method Room Air 04/19/23 07:54 BMI result Body Mass Index 21.6 Const: Other: Constitutional : Awake, interactive,not in distress Neck : Normal inspection, Supple Cardiovascular : RRR, no JVP, no lower extremity edema Respiratory : fair bilateral air entry, LLL crackles Gastrointestinal: soft, lax, Normal bowel sounds, Non tender Skin : Warm, Dry Neurological : Alert & oriented x3, No focal deficit DS: Data Data Completed and Pending Labs on day of discharge: Laboratory Results - last 24 hr 04/19/23 04/19/23 04/19/23 05:47 05:47 05:47 WBC 18.4 H RBC 4.61 Hgb 12.8 L Hct 37.8 L MCV 82.0 MCH 27.8 MCHC 33.9 RDW 14.1 Plt Count 246 MPV 9.5 Absolute Nucleated RBC 0.020 H Nucleated RBC % (auto) 0.1 Sodium 135 Potassium 3.3 Chloride 105 Carbon Dioxide 23 Anion Gap 10 L BUN 5 L Creatinine 0.71 0.72 Estim Creat Clear Calc 148.5 146.4 Estimated GFR > 60 > 60 Random Glucose 95 Calcium 8.0 L Total Bilirubin 0.5 Direct Bilirubin 0.2 AST 12 ALT 16 Alkaline Phosphatase 83 Total Protein 4.9 L Albumin 2.8 L Preliminary micro results at discharge 04/17/23 19:36 Blood Culture - Preliminary Blood - Venous No growth after 24 hours. 04/17/23 18:59 Blood Culture - Preliminary Blood - Venous No growth after 24 hours. Imaging Chest x-ray: Radiologist's impression: ITS Impressions Chest X-Ray 04/17/23 15:54 IMPRESSION: Left lower lobe infiltrate. Chest CTA 04/18/23 00:20 IMPRESSION: * No pulmonary embolism. * Multilobar bronchopneumonia. * Hepatic steatosis. VTE: negative. Discharge Plan Discharge Anticipated Discharge Date/Time: 04/19/23 10:41 Patient Disposition: Left Against Medical Advice Discharge Diagnosis: Severe sepsis Pneumonia Referrals: Physician,Unknown J [Primary Care Provider] - 1 Week Discharge Medications: New amoxicillin-pot clavulanate 875-125 mg tablet 1 tab PO BID Qty: 14 0RF doxycycline monohydrate 100 mg capsule 100 mg PO BID Qty: 14 0RF Continued albuterol sulfate [Ventolin HFA] 90 mcg/actuation HFA aerosol inhaler 2 puff INHALATION Q4H PRN (Reason: Shortness Of Breath) Discharge Orders: Discharge Order (Routine); Ordered 04/19/23 Ordered By: Peace Hernandez Diet: Advance to usual diet Activity on Discharge: As tolerated Care Plan Goals: Read below Health Concerns: Read below Plan of Treatment: Read below Assessment: AMA Discharge Date/Time: 04/19/23 09:45
== END 2023-04-19 09:45 | disposition left against medical advice (07) ==
LOC: HO.ED 18:45 → HO.EDOVER 04-18 08:54 → HO.S3 04-18 11:30
PROVIDERS: Physician Assistant; Admitting Provider Student in an Organized Health Care Education/Training Program; Emergency Provider Emergency Medicine; Visit Provider Student in an Organized Health Care Education/Training Program
DX: F19.10 Other psychoactive substance abuse, uncomplicated (principal); J18.9 Pneumonia, unspecified organism; R65.20 Severe sepsis without septic shock; E80.6 Other disorders of bilirubin metabolism; R04.2 Hemoptysis; Z20.822 Contact with and (suspected) exposure to COVID-19; R09.02 Hypoxemia; R00.0 Tachycardia, unspecified; F17.200 Nicotine dependence, unspecified, uncomplicated; Z79.899 Other long term (current) drug therapy; R07.9 Chest pain, unspecified
CPT/HCPCS: 36415; 71046; 71275; 80048; 80076; 80307; 81001; 82565; 83605; 83735; 84484; 85025; 85027; 85379; 85610; 85730; 87040; 87635; 87651; 93005; 96361; 96365; 96366; 96367; 96368; 96372; 96375; 99221; 99285; J1956; J2270; J2405; J2543; J3370; J3371; Q9967

== ENCOUNTER 2024-04-16 19:25 | Emergency (ER) | payer MEDICAID, SELFPAY ==
[2024-04-16 20:09] VITALS: BP 134/77; PULSE 78; RESP 20; TEMP 36.7; O2SAT 98; BMI 31.3
--- NOTE | 2024-04-16 20:41 | ED_ITS ---
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 Patient reports a rash since yesterday. He states that he was recently staying at a friend's house who had bedbugs and their dog had scabies Patient reports getting rid of all the clothes that he wore over his friend's house He reports a rash to his groin, abdomen and arms He has been using Benadryl ointment without any improvement His significant other is here with similar symptoms Related Data Home Medications ?Medication ?Instructions ?Recorded ?Confirmed albuterol sulfate 90 mcg/actuation 2 puff inhalation Q4H PRN 04/17/23 04/17/23 aerosol inhaler (Ventolin HFA) Shortness Of Breath Previous Rx's ?Medication ?Instructions ?Recorded amoxicillin 875 mg-potassium 1 tab PO BID #14 tabs 04/19/23 clavulanate 125 mg tablet doxycycline monohydrate 100 mg 100 mg PO BID #14 caps 04/19/23 capsule permethrin 5 % topical cream 1 appl topical Q14D 2 doses #60 04/16/24 grams Allergies Allergy/AdvReac Type Severity Reaction Status Date / Time No Known Allergies Allergy Verified 04/16/24 20:12 Review of Systems Constitutional: Constitutional: Denies body ache(s), Denies chills, Denies fever(s) and Denies headache(s) Eyes: Eyes: Denies blurry vision ENT: Denies headache(s) and Denies sore throat Cardiovascular: Cardiovascular: Denies chest pain Respiratory: Respiratory: Denies cough Gastrointestinal: Gastrointestinal: Denies vomiting Musculoskeletal: Musculoskeletal: Denies back pain Integumentary/Breasts: Skin/Breast: Reports pruritus and Reports rash Neurologic: Denies headache(s) [facility] Past Medical History Medical History Substance abuse Social History Social History Household Members: None Housing: Apartment Do you presently have visiting nurse or other home services: No Alcohol intake: never Patient Tobacco Use Status: Current everyday Tobacco user Tobacco use type: Cigarette e-Cigarette/Vaping Use: Never Used Substance Use Type: Crack/Cocaine and Marijuana Advance Directives: No Advance Directives Information Provided: No Do you have a plan to hurt others: No Plan Physical Exam ED Vital Signs: Vital Signs - 24 hr 04/16/24 20:09 Temperature 98.1 F Pulse Rate 78 Respiratory Rate 20 Blood Pressure 134/77 Pulse Oximetry 98 Oxygen Delivery Method Room Air BMI result Body Mass Index 31.3 Const General: healthy appearing, comfortable, no acute distress, alert and awake Nutritional Appearance: well nourished Orientation/consciousness: patient oriented x3 HENMT Head: Yes normocephalic and Yes atraumatic Eyes Eyelids: Yes eyelids normal Conjunctivae: conjunctivae normal Sclerae: sclerae normal Corneas: corneas normal Pupils: Equal, round and reactive pupils present EOM: EOMs intact bilaterally Neck Neck: Yes full ROM Resp Effort & Inspection: normal respiratory effort, able to speak in complete sentences and not labored GI Inspection: No distended Palpation (GI): Soft to palpation, not firm, nontender, no guarding and not rigid Skin Other: Patient has mild erythematous maculopapular lesions to the flexor surfaces of the bilateral upper arms, perineum region, and abdomen. General skin exam: elasticity normal Neuro General: patient oriented x3 Cranial nerves: Yes Equal, round and reactive pupils present and Yes Bilaterally intact EOM present Cognition (Neuro): normal cognition Extrem Other: Moving all extremities well without any obvious deformities Medical Decision Making Medical Decision Making MDM Narrative: Patient has a mild dermatitis to the arms, legs and groin. He reports being around somebody was diagnosed with scabies and bedbugs. I educated the patient on bedbugs treatment and will treat scabies with permethrin. He will follow-up with his PCP Differential Diagnosis Differential Diagnoses: The differential diagnosis associated with the presentation includes Scabies Dermatitis Bedbugs Acute rash Discharge Plan Discharge Clinical Impression: Dermatitis Patient Disposition: Home, Self-Care Instructions: Scabies (ED), Bed Bugs (ED) Additional Instructions: Apply permethrin cream to your entire body except your face before bed and shower off in the morning You may apply another dose in 2 weeks if you are still having any itching or rash You may use Benadryl ointment or capsules to help with the itch I recommend that you get rid of the close your to your friend's house Follow-up with your primary doctor Prescriptions: New permethrin 5 % cream 1 appl topical Q14D Qty: 60 0RF Rx Instructions: apply second treatment 14 days after first treatment if live lice remain No Action albuterol sulfate [Ventolin HFA] 90 mcg/actuation HFA aerosol inhaler 2 puff INHALATION Q4H PRN (Reason: Shortness Of Breath) amoxicillin-pot clavulanate 875-125 mg tablet 1 tab PO BID Qty: 14 0RF doxycycline monohydrate 100 mg capsule 100 mg PO BID Qty: 14 0RF Print Language: Serbian
[2024-04-16 21:07] VITALS: BP 0/0; PULSE 0; RESP 0; TEMP -17.7; TEMP 0
== END 2024-04-16 21:08 | disposition home or self-care (01) ==
PROVIDERS: Emergency Provider Internal Medicine
DX: L30.9 Dermatitis, unspecified (principal)
CPT/HCPCS: 99282; 99283